=== PATIENT | female | born 1955 | race Hispanic/Latino ===

== ENCOUNTER 2019-01-27 11:23 | Outpatient (CLI) | payer BC ==
--- NOTE | 2019-01-28 11:15 | Mammography Report ---
BONE DEXA CLINICAL: Postmenopausal screening. TECHNIQUE: 2 site bone DEXA performed on an Hologic scanner. FINDINGS: The average BMD of the lumbar spine L1-L4 is 0.834g/cm squared with a T score of -1.9 and a Z score o f -0.2. The average total BMD of the left hip is 0.721 g/cm squared with a T score of -1.8and a Z score of -0 .6. Left femoral neck BMD is 0.498g/cm squared with a T score of -3.2 and a Z score of -1.7. IMPRESSION: 1. WHO classification: Osteopenia with increased fracture risk based on spine measurements. 2. WHO classification Osteoporosis with high fracture risk based on left femoral neck measurements. RECOMMENDATION: Clinical correlation and routine screening. Definitions: BMD equal bone mineral density T score = BMD related to peak bone mass of young adult (Becker expressed an standard deviation) Z score = age-matched BMD expressed in SD World health organization (WHO) diagnostic criteria Normal T score greater than equal to 1 standard deviation Osteopenia T score between -1 and -2.4 standard deviation Osteoporosis T score -2.5 standard deviation or below. Note: BMD is not the only risk factor for fracture; also consider factors such as the patient's age, risk of falling, previous osteoporotic fracture, family history of osteoporotic fractures, current sm oker and low body weight. Z scores are not calculated if greater than 80 years of age. Signer Name: Antoine Alvarez MD Signed: 01/28/2019 11:10 AM Workstation Name: [id number]
== END 2019-01-27 11:24 | disposition home or self-care (01) ==
LOC: SPVWC 11:23
PROVIDERS: ATTEND Obstetrics & Gynecology
DX: Z13.820 Encounter for screening for osteoporosis (principal); M81.0 Age-related osteoporosis without current pathological fracture; M85.88 Other specified disorders of bone density and structure, other site
CPT/HCPCS: 77080